=== PATIENT | male | born 1990 | race Caucasian/White ===

== ENCOUNTER 2023-06-05 19:06 | Emergency (ER) | payer OTHER ==
[~2023-06-05] VITALS: Ht 172.7 cm; Wt 90.0 kg
[2023-06-05] VITALS (15 sets, daily range): BP systolic 102–148; BP diastolic 64–102
[2023-06-05] MEDS ORDERED: MORPHINE SULFATE 4 MG/ML VIAL IV STA (19:50)
[2023-06-05] MEDS ORDERED: ONDANSETRON HCl 4 MG/2 ML SDV IV STA (19:50)
[2023-06-05 20:27] LABS: BASO% 0.8 % (0-3); EOS% 3.8 % (0-8); HEMATOCRIT 44.6 % (39.0-50.0); HEMOGLOBIN 15.1 g/dl (14.0-18.0); IMMATURE GRANULOCYTES 0.1 % (0.0-5.0); LYMPH% 33.3 % (15-41); MEAN CELL VOLUME 86.6 fL CALC (80.0-100.0); MEAN CORPUSCULAR HGB 29.3 pG CALC (26.0-32.0); MEAN CORPUSCULAR HGB CONC 33.9 g/dL CAL (32.0-36.0); MONO% 11.8 % (2-13); NEUT# 3.79 thou/uL (1.82-7.42); NEUT% 50.2 % (42-76); RED BLOOD COUNT 5.15 mill/uL (4.70-6.10); RED CELL DISTRI WIDTH 11.7 % (11.5-15.5)
[2023-06-05] MEDS ORDERED: IMITREX50 MG PO (20:40)
[2023-06-05] MEDS ORDERED: MOTRIN800 MG PO (20:40)
[2023-06-05 20:45] LABS: ALBUMIN 4.8 g/dL (3.2-5.0); ALKALINE PHOSPHATASE 58 u/l (38-126); AMYLASE 61 u/l (30-110); ANION GAP 13 (6-22 (CALC)); BILIRUBIN, TOTAL 0.5 mg/dL (0.2-1.3); BUN 19 mg/dL (9-20); BUN/CREATININE RATIO 20 (12-20 (CALC)); CARBON DIOXIDE 23 mmol/l (22-30); CHLORIDE 106 mmol/l (95-108); GFR FOR AFR.AMER. > 60 ML/MIN (>=60 (CALC)); GFR OTHER RACES > 60 ML/MIN (>=60 (CALC)); LIPASE 80 u/l (23-300); POTASSIUM 3.9 mmol/l (3.5-5.1); SGOT/AST 35 u/l (17-59); SODIUM 138 mmol/l (137-146)
[2023-06-06 00:16] VITALS: BP 123/75
[2023-06-06 00:30] VITALS: BP 123/75
== END 2023-06-06 00:35 | disposition home or self-care (01) | DRG 446 ==
LOC: ED 19:06
PROVIDERS: Family Medicine
DX: K81.9 Cholecystitis, unspecified (principal)